=== PATIENT | female | born 1990 | race Caucasian/White ===

== ENCOUNTER → 2017-10-20 | Outpatient (REF) ==
[~2017-10-20] MED LIST: BACDS PO; IBUP-56 PO; IBUP800T37 PO; LOR5/325 PO; MED150I IM; ONDA4TAB PO; PER PO; PREN-162 PO
[2017-10-20 09:21] LABS: LDL CHOLESTEROL 73 mg/dl
== END ==
DX: Z02.9 Encounter for administrative examinations, unspecified (principal)

== ENCOUNTER → 2017-11-14 | Outpatient (CLI) | payer OTHER | LOC: LAB 09:54 | PROVIDERS: ATTEND Obstetrics & Gynecology | DX: Z11.3 Encounter for screening for infections with a predominantly sexual mode of transmission (principal); Z11.8 Encounter for screening for other infectious and parasitic diseases | CPT/HCPCS: 87491; 87591 ==

== ENCOUNTER → 2018-01-26 | Outpatient (CLI) | payer OTHER ==
[~2018-01-26] MED LIST changes: +PREN-127 PO
[2018-01-26 15:50] LABS: PLATELET COUNT, AUTOMATED 208 K/uL (150-450)
== END ==
LOC: LAB 14:35
PROVIDERS: ATTEND Obstetrics & Gynecology
DX: Z34.91 Encounter for supervision of normal pregnancy, unspecified, first trimester (principal); R82.79 Other abnormal findings on microbiological examination of urine
CPT/HCPCS: 36415; 81001; 85025; 86592; 86762; 86850; 86900; 86901; 87088; 87340

== ENCOUNTER → 2018-03-30 | Outpatient (CLI) | payer OTHER ==
[~2018-03-30] MED LIST changes: +FLU60SYR36 IM
== END ==
LOC: LAB 15:09
PROVIDERS: ATTEND Student in an Organized Health Care Education/Training Program
DX: Z34.92 Encounter for supervision of normal pregnancy, unspecified, second trimester (principal)
CPT/HCPCS: 36415; 81511

== ENCOUNTER → 2018-04-30 | Outpatient (CLI) | payer OTHER ==
--- NOTE | 2018-04-30 15:29 | RADIOLOGY IMAGING REPORT ---
[place] [facility] [place] NAME: Marlen Vargas : 1990 MR: [id number] V: [id number] EXAM DATE: ORDERING PHYSICIAN: YOVANI PERAZA TECHNOLOGIST: Location: [facility] Patient: Marlen Vargas : 1990 Visit/Account:[id number] Date of Sevice: 04/30/2018 [facility] OB ANATOMICAL SURVEY HISTORY: Anatomic survey COMPARISON: None. TECHNIQUE: Transabdominal imaging was performed for assessment of the fetus and maternal pelvic s tructures. Transvaginal imaging was not performed. FINDINGS: Intrauterine gestations: One. presentation: Variable. heart rate: 150 bpm. Amniotic fluid volume: Normal; NAB 23.7 cm; MVP 6.64 cm. Placenta: Anterior. Uterus: Gravid, otherwise grossly unremarkable where visualized. Maternal adnexa/ovaries: Grossly unremarkable, ovaries not visualized. Cervix: Grossly long and closed. Gestational Parameters: BPD: 4.42 cm, 24th percentile HC: 16.97 cm, 24th percentile AC: 15.4 cm, 57th percentile FL: 3.17 cm, 37th percentile Average ultrasound age (AUA): 19 weeks/ six days Estimated age based on LMP: 20 weeks/ zero days Estimated weight (EFW): 329 grams +/- 48 grams, 48th percentile Anatomic Survey: Intracranial structures, 4-chamber heart, stomach, kidneys, urinary bladder, spine, 3-vessel cord and cord insertion are unremarkable. Two upper and two lower extremities visualized. Transverse images of the sacrum could not be obtained due to position. The patient is scheduled for follow-up im aging Next IMPRESSION: Single viable fetus in viable presentation with an estimated gestational age by measurements of 19 we eks and six days. The estimated weight is 329 g, 48th percentile Transverse images of the sacrum could not be obtained due to position. The patient is schedule d to return next for follow-up imaging Report Dictated By: Wendi Sam MD at 04/30/2018 3:18 PM Report E-Signed By: Wendi Sam MD at 04/30/2018 3:25 PM WSN:LAURENT
== END ==
LOC: RAD 10:49
PROVIDERS: ATTEND Student in an Organized Health Care Education/Training Program
DX: Z34.92 Encounter for supervision of normal pregnancy, unspecified, second trimester (principal); Z3A.19 19 weeks gestation of pregnancy

== ENCOUNTER → 2018-05-07 | Outpatient (CLI) | payer OTHER | LOC: US 02:20 | PROVIDERS: ATTEND Student in an Organized Health Care Education/Training Program | DX: Z02.9 Encounter for administrative examinations, unspecified (principal) ==

== ENCOUNTER → 2018-06-24 | Outpatient (CLI) | payer OTHER ==
[~2018-06-24] MED LIST changes: +DIPH0.5D12 IM
[2018-06-24 16:27] LABS: PLATELET COUNT, AUTOMATED 183 K/uL (150-450)
== END ==
LOC: LAB 15:03
PROVIDERS: ATTEND Student in an Organized Health Care Education/Training Program
DX: Z34.92 Encounter for supervision of normal pregnancy, unspecified, second trimester (principal)
CPT/HCPCS: 36415; 82950; 85025

== ENCOUNTER → 2018-08-19 | Outpatient (CLI) | payer OTHER | LOC: LAB 08:09 | PROVIDERS: ATTEND Student in an Organized Health Care Education/Training Program | DX: Z34.93 Encounter for supervision of normal pregnancy, unspecified, third trimester (principal) | CPT/HCPCS: 87081 ==

== ENCOUNTER 2018-09-09 20:43 | Outpatient (CLI) | payer OTHER ==
[~2018-09-09 20:43] MED LIST changes: -DIPH0.5D12 IM; +DIPH0.5S2 IM
[2018-09-09] MEDS ORDERED: OSELTAMIVIR PHOS 75 MG CAP PO SCH (22:30)
[2018-09-10] MEDS ORDERED: OSE75 PO (08:50)
[2018-09-10 23:33] VITALS: BMI 27.1
[2018-10-06] MEDS ORDERED: BREA1EAC2 ASDIRECTED (09:03)
[2018-10-28] MEDS ORDERED: LEVO1IUD3 IY (09:11)
== END 2018-09-09 22:36 | disposition home or self-care (01) ==
LOC: OB 20:43 → L&D 20:43 → UNDOADMOB 20:43 → L&D 22:36 → UNDODISOB 22:36 → EDSTATUS 09-14 07:15
PROVIDERS: ATTEND Student in an Organized Health Care Education/Training Program
DX: J09.X2 Influenza due to identified novel influenza A virus with other respiratory manifestations (principal)
CPT/HCPCS: 87502; 87653; 99213; G0378; G0379

== ENCOUNTER 2018-09-10 23:24 | Inpatient (IN) | payer OTHER ==
[~2018-09-10] VITALS: Ht 177.8 cm; Wt 90.7 kg
[~2018-09-10 23:24] MED LIST changes: +DIPH0.5D12 IM; -DIPH0.5S2 IM; +OSE75 PO
[2018-09-10] MEDS ORDERED: OXYTOCIN 30 UNIT/D5LR 500 ML 500 ML ONE (23:32)
[2018-09-10 23:33] VITALS: BP 136/77; Ht 177.8 cm; Wt 90.7 kg
[2018-09-10] MEDS ORDERED: ceFAZolin(*) 2GM/D5W 50ML 50 ML IVPB PRN (23:40)
[2018-09-10] MEDS ORDERED: LR(*) 1000 ML BAG 1,000 ML IV SCH (23:40)
[2018-09-10] MEDS ORDERED: METOCLOPRAMIDE 10 MG/2 ML SDV IVP PRN (23:40)
[2018-09-10] MEDS ORDERED: fentaNYL CITR 100 MCG/2 ML AMP IVP PRN (23:40)
[2018-09-10] MEDS ORDERED: LIDOCAINE 1% LOCAL 300 MG/30ML INJ PRN (23:40)
[2018-09-10] MEDS ORDERED: FAMOTIDINE(*) 20MG/50ML PREMIX 50 ML IVPB PRN (23:40)
[2018-09-10] MEDS ORDERED: OXYTOCIN 30 UNIT/D5LR 500 ML 500 ML IV PRN (23:40)
[2018-09-10] MEDS ORDERED: LIDOCAINE/PF 2% 200MG/10ML AMP 200 MG/10 ML AMPUL EPI PRN (23:45)
[2018-09-10] MEDS ORDERED: BUPIVACAINE 0.25% MPF INJ EPI PRN (23:45)
[2018-09-10] MEDS ORDERED: FENTANYL/ROPIVACAINE 100 ML BAG EPI PRN (23:45)
[2018-09-10] MEDS ORDERED: BUPIVACAINE 0.5% INJ 30ML VIAL EPI PRN (23:45)
[2018-09-10] MEDS ORDERED: fentaNYL CITR 100 MCG/2 ML AMP IT PRN (23:45)
[2018-09-10] MEDS ORDERED: LIDO/EPI 2% MPF 1:200,000 20ML EPI PRN (23:45)
[2018-09-11] MEDS ORDERED: fentaNYL CITR 100 MCG/2 ML AMP ONE (00:11)
[2018-09-11] MEDS ORDERED: FENTANYL/ROPIVACAINE 100ML BAG 100 ML ONE (00:12)
[2018-09-11] MEDS ORDERED: ONDANSETRON 4 MG/2 ML VIAL ONE (00:12)
[2018-09-11] MEDS ORDERED: BUPIVACAINE 0.25% MPF INJ ONE (00:12)
[2018-09-11] MEDS ORDERED: ePHEDrine 25 MG/5 ML DISP.SYR IVP ONE (00:13)
--- NOTE | 2018-09-11 00:22 | History & Physical ---
History of Present Illness EDC per LMP: Sep 17, 2018 Estimated Gestational Age: 39.1 Chief Complaint Labor History of Present Illness 27-year-old at 39w1d presents for labor. She was originally scheduled for induction today, but tested positive for Influenza A yesterday. She is 3 doses into Tamiflu. She is afebrile now; last Tylenol at 1300. She reports UCx since around 2200hrs. She denies LOF or VB. No preeclampsia symptoms. PNC by Dr. Ziegler. c/b breech with successful version at 36 weeks and history of fast labor. History Patient's Blood Type: O Positive Rubella Status: Immune Group B Strep Screen: Negative Obstetrical History: Hx 2 SVDs Past Medical History: See PNR Allergies: Coded Allergies: No Known Drug Allergies (Verified , 12/11/10) Social History: Denies use of alcohol, tobacco, or recreational drugs. Family History: FH: HTN (hypertension) MOTHER, Age:58 FH: Parkinson's disease FATHER, Age:63 FH: breast cancer aunt FH: colon cancer grandma FH: prostate cancer FATHER, Age:63 FH: stroke FATHER, Age:63 Med Rec Home Meds Active Scripts Oseltamivir Phosphate (TAMIFLU) 75 Mg Cap, 75 MG PO BID for 5 Days, #10 CAP 0 Refills Prov:YOVANI ZIEGLER DO 09/10/18 Reported Medications Vits W-Ca,Fe,Fa(<1MG) ( VITAMINS) 1 Each Tablet, 1 EACH PO DAILY, TAB 01/26/18 Review of Systems Constitutional: Fever, Chills Neurological: No Syncope Eyes: No Vision Change ENT: Sinus Congestion Cardiovascular: No Chest Pain, No Palpitations Respiratory: Cough; No Shortness of Breath Gastrointestinal: No Nausea, No Vomiting, No Diarrhea Genitourinary: No Dysuria Musculoskeletal: No Pain Psychiatric: No Depression, No Anxiety Exam General Exam Vital Signs VS reviewed General Apperance: Alert/Awake/No Acute Distress Neuro: No Gross deficits Eyes: Normal Extraocular Movement & Vison Cardiovascular: Regular Rate and Rhythm Respiratory: No Respiratory Distress Abdomen: Gravid - Non-Tender : Normal Musculoskeletal: No Weakness/Pain Extremities: No Cyanosis,Clubbing or Edema Integumentary: Skin Intact without Lesions or Rash Psychological: Alert & Oriented X3, Appropriate Mood & Affect Cervical Dialation: 6 Cervical Effacement (%): 80 Cervical Consistency: Soft Cervical Position: Mid Station: -2 Presentation: Vertex Uterine Contractions(Q min): 3 Uterine Contraction Strength: Moderate UC Resting Tone: Soft Fetus Feeling Movement?: Yes FHT Category: I Assessment and Plan Problems: (1) Active labor at term Assessment & Plan: 27-year-old at 39w1d presents for labor. Ultrasound confirms cephalic. She will get epidural and then anticipate . (2) Influenza A Assessment & Plan: Continue Tamiflu BID. (3) 39 weeks gestation of SANTOS MYLES MD Sep 11, 2018 00:22
[2018-09-11 00:24] LABS: PLATELET COUNT, AUTOMATED 163 K/uL (150-450)
--- NOTE | 2018-09-11 00:53 | Labor Progress Note ---
Labor Subjective Progress Notes Subjective Pt comfortable s/p Epidural. Feeling Movement?: Yes Vaginal Discharge/Fluid: Clear Fluid (with amniotomy) Labor Pain: Comfortable Neurological: No Headache, No Other Eyes: No Visual Disturbances Labor Objective Vaginal Discharge/Fluid?: Clear Fluid (with AROM) Cervical Dialation: 8 Cervical Effacement (%): 100 Cervical Consistency: Soft Cervical Position: Anterior Station: -1 Presentation: Vertex Uterine Contractions(Q min): 2 Uterine Contraction Strength: Moderate UC Resting Tone: Soft Fetus Heart Tones: 125 Heart Tone Variabilty: Moderate FHT Accelerations: Present FHT Decelerations: None FHT Category: I Other Result Diagram: 09/11/18 0004 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 Underwent amniotomy with clear amniotic fluid. Expect soon. (2) Influenza A (3) 39 weeks gestation of KARMENJWAnali LU Sep 11, 2018 00:53
--- NOTE | 2018-09-11 01:05 | Anesthesia OB Pre-Anes Eval ---
History of Present Illness Anesthesia Start Date: Sep 11, 2018 Anesthesia Start Time: 00:15 OB Anesthesia Diagnosis: spontaneous labor Current Complication: other (Flu +) EDC: Apr 07, 2016 : 3 Para: 2 Pain Ratin Result Diagram: 09/11/18 0004 Height (Inches): 70 Weight (Pounds): 187 Past Medical History Medical History: other (+flu) Surgical History: noncontributory Previous Anesthesia: epidural Attended Childbirth Classes?: No Hx Anesthesia Reactions: No Hx Family Anesthesia Reaction: No Home Meds Active Scripts Oseltamivir Phosphate (TAMIFLU) 75 Mg Cap, 75 MG PO BID for 5 Days, #10 CAP 0 Refills Prov:YOVANI PERAZA DO 09/10/18 Reported Medications Vits W-Ca,Fe,Fa(<1MG) ( VITAMINS) 1 Each Tablet, 1 EACH PO DAILY, TAB 01/26/18 Allergies: Coded Allergies: No Known Drug Allergies (Verified , 12/11/10) Anesthesia OB ROS Neurological: No migraines/headaches, No seizures, No neuropathy, No other ENT: Denies Tooth caps, Denies Loose teeth, Denies Chipped teeth, Denies Dentures, Denies Bridges, Denies Retainers, Denies Veneers, Denies Implants, Denies Tongue ring, Denies Other Pulmonary: No asthma, No smoker (pks/day/yrs), No other Airway Class: ll Cardiovascular ROS: No edema, No arrhythmia, No other GI ROS: clear liquids Last Solids Date: Sep 10, 2018 Last Solids Time: 17:30 ROS: No Herpes, No STD(s), No Liver Disease, No Renal Disease, No Other Endocrine ROS: No diabetes, No gestational diabetes, No thyroid disorder, No other Musculoskeletal ROS: No low back pain, No low back injury, No scoliosis, No other ASA Classification: 2 Assessment and Plan Anesthesia Plan: JUANY JOY CRNA Sep 11, 2018 01:05
--- NOTE | 2018-09-11 01:08 | Procedure Note ---
Anesthetic Placement Note Anesthesia Plan: CSE Permit for Anesthesia Signed: Yes Anesthesia Technique: Patient Sitting Anesthesia Prep: Chlorhexidine Interspace: L 3-4 Local Anesthetic: 1% Lidocaine Amount Local - cc's: 3 Anesthesia Needle: 17g Touhnash/Jeff Anesthesia Attempts: 1 Loss of Resistance: Normal Saline Depth of YA (cm): 4.5 Epidural Needle Placement: No CSF, No Blood, No Parasthesia Intrathecal Needle: 27 Gauge Pencan Cerebral Spinal Fluid: Yes, Clear Catheter Insertion (cm): 4.5 (9cm @skin) Catheter Type: Lr - Spring Wound Epidural Dressing: Tegaderm, Tape Anesthesia Tray: Lot Number ([id number]), Expiration Date (02/23), Reference Number ([id number]) Anesthesia Medications: Intrathecal Dose: mcg Fentanyl (10), mg Marcaine MPF (2.5), Time (0028) Epidural Test Dose: 1.5 Lido/Epi (1:200,000), Dose - mL (3), Time (0031), Negative Epidural Infusion: 0.2% Ropivicaine, With Fentanyl 2mcg/ml, Start Time: (0042) Epidural Pump Setting: Bolus Dose - mL (8), Lockout - Minutes (20), Maintenance Rate - mL/hr (6), Maximum per Hour - mL (30) Complications: None JUANY MUNIZ CRNA Sep 11, 2018 01:08
--- NOTE | 2018-09-11 01:38 | Anesthesia Progress Note ---
Assessment and Plan Anesthesia Plan: CSE Anesthesia Stop Day: Sep 11, 2018 Anesthesia Stop Time: 01:45 JUANY MUNIZ CRNA Sep 11, 2018 01:38
[2018-09-11] MEDS ORDERED: INFLUENZA VIRUS VAC 0.5ML SYR IM ONLY ONE (02:00)
[2018-09-11] MEDS ORDERED: ACETAMINOPHEN 325 MG TAB PO PRN (02:00)
[2018-09-11] MEDS ORDERED: HYDROCORTISONE 2.5% CR 30GM TB PR PRN (02:00)
[2018-09-11] MEDS ORDERED: APAP/HYDROCODONE 325/5 TAB PO PRN (02:00)
[2018-09-11] MEDS ORDERED: MAGNESIUM HYDROXIDE* 30ML UDCP PO PRN (02:00)
[2018-09-11] MEDS ORDERED: GLYCERIN/WITCH HAZEL LEAF 1 PK TOP PRN (02:00)
[2018-09-11] MEDS ORDERED: MEASLES,MUMP,RUBELLA VAC 0.5ML SC ONE (02:00)
[2018-09-11] MEDS ORDERED: LANOLIN OINT 7 GM TUBE TP PRN (02:00)
[2018-09-11] MEDS ORDERED: BENZOCAINE 20% 60 ML BTL TP PRN (02:00)
[2018-09-11] MEDS ORDERED: DIPHTH/TETANUS/ACEL. PERTUSSIS IM ONE (02:00)
--- NOTE | 2018-09-11 02:07 | OB Delivery Note ---
Delivery Note Vaginal Delivery Type: Spont. Vaginal Delivery Delivery Date: Sep 11, 2018 Delivery Time: 01:34 Estimated Gestational Age(wks): 39.2 Length of Labor Stage I (hrs): 4 Length of Labor Stage II (hrs): 0.5 Labor Stage III (minutes): 10 Delivery Anesthesia: Epidural Infant Sex: Female Weight (gms): 3130 Apgars: 1 Minute (9), 5 Minute (9) Estimated Blood Loss: 500 YOVANI PERAZA DO Sep 11, 2018 02:07
--- NOTE | 2018-09-11 03:11 | DELIVERY NOTE ---
DELIVERY DATE: September 11, 2018 SURGEON: Jama Ziegler DO ANESTHESIA: Epidural. PREOPERATIVE DIAGNOSES 1. A 27-year-old 3, para 2, at 39-1/7 weeks. 2. Labor. 3. Influenza A positive. POSTOPERATIVE DIAGNOSES 1. A 27-year-old 3, para 2, at 39-1/7 weeks. 2. Labor. 3. Influenza A positive. PROCEDURE Spontaneous vaginal delivery. FINDINGS A live-born female infant at 0134 of 09/11/2018 with Apgars of 9 and 9, weighing 3130 g, 6 pounds 14 ounces, three-vessel cord, over an intact perineum with an intact placenta. ESTIMATED BLOOD LOSS 500 mL. PATHOLOGY None. COMPLICATIONS None known. CONDITION Stable x2. Mother and to remain in LDRP. COUNTS Correct for all needles, laps, sponges and instruments. LABOR SUMMARY Patient is a 27-year-old 3, para 2, who presented to Labor and Delivery with a chief complaint of painful contractions. She was noted to be 6 cm on admission. Patient has a history of rapid labor. With that history, she requested epidural as soon as possible, received one accordingly. She did undergo amniotomy with clear amniotic fluid after epidural and was noted to be 8 cm, and quickly progressed to complete and felt the urge to push. With the urge to push, the delivery team was called and assembled. DELIVERY SUMMARY Patient was placed in dorsal lithotomy position. She was prepped and draped in the usual sterile manner. Upon maternal pushing, the infant's head was delivered in a controlled manner, followed by the anterior shoulder with gentle downward motion, the posterior shoulder with gentle upward motion, with the remainder of the 's body delivering spontaneously. Mouth and nose were bulb-suctioned. Infant was placed on maternal abdomen, where she was tended to by awaiting nursing staff. After 2-1/2 minutes, the cord was clamped x2 and cut by the 's father. With the cord cut, the baby continued to be monitored and was inspected and watched by the Labor and Delivery staff. Cord blood gases were obtained. The placenta delivered spontaneously with gentle cord traction. Oxytocin was infused to help with uterine tone. The uterine was massaged and deemed firm. Next, following inspection of the perineum, vagina, cervix, and labia, it was noted that there were no lacerations present. The patient was cleaned, the labor bed was reassembled, and the mother and were allowed to continue to moran. CHEIKH
[2018-09-11] MEDS ORDERED: IBUPROFEN 800 MG TAB PO SCH ×2 (05:00→09:00)
[2018-09-11] MEDS ORDERED: LR(*) 1000 ML BAG 1,000 ML ONE ×2 (05:20→05:27)
[2018-09-11 07:23] VITALS: BP 124/88
[2018-09-11] MEDS: DOCUSATE CALCIUM 240 MG CAP PO SCH ×2 (09:00→20:25)
--- NOTE | 2018-09-11 09:30 | Anesthesia Post Eval Note ---
Anesthesia Post Eval Note Vital Signs 09/10/18 09/11/18 23:33 07:23 Temp 97.5 Pulse 100 Resp 18 B/P (MAP) 124/88 (100) Pulse Ox 97 O2 Delivery Room Air Pt able to participate in Eval: Yes Cardiovascular Status: Satisfactory Respiratory Status: Satisfactory Pain Managment: Satisfactory PO Nausea/Vomiting: Satisfactory Temperature Management: Satisfactory Mental Status: Satisfactory, Alert, Oriented X3 Post-Op Hydration Status: Satisfactory, Tolerating PO Well, Voiding w/o Difficulty Anesthesia Type: JUANY JOY CRNA Sep 11, 2018 09:30
[2018-09-11] MEDS: IBUPROFEN 800 MG TAB PO SCH ×2 (13:57→20:25)
[2018-09-11 17:00] VITALS: BP 122/75
[2018-09-11 19:22] VITALS: BP 122/91
[2018-09-11 23:45] VITALS: BP 122/77
[2018-09-12] MEDS: IBUPROFEN 800 MG TAB PO SCH ×3 (05:00→17:11)
[2018-09-12 07:30] VITALS: BP 121/88
[2018-09-12] MEDS: DOCUSATE CALCIUM 240 MG CAP PO SCH (08:40)
--- NOTE | 2018-09-12 11:37 | OB/GYN Progress Note ---
OB Subjective Progress Notes Subjective Doing great PPD #1. Denies any complaints. Reports flu symptoms improving. Lochia appropriate. Tolerating regular diet. Ambulatory. GI: NEG Nausea, NEG Vomiting, NEG Flatus, NEG Bowel Movement : Voiding Well, Vaginal Bleeding, Scant Pain: Mild, Comfortable Neurological: No Headache, No Other Eyes: No Visual Disturbances OB Objective Physical Exam Vital Signs Date Time Temp Pulse Resp B/P (MAP) Pulse Ox O2 Delivery O2 Flow Rate FiO2 09/12/18 03:30 98.6 94 16 09/11/18 23:45 122/77 (92) 09/11/18 21:15 Room Air 09/11/18 19:22 94 Intake and Output 09/12/18 06:59 Intake Total 960 ml Output Total 300 ml Balance 660 ml Intake Oral 460 ml IV Total 500 ml Output Urine Total 300 ml # Voids 2 General Appearance: Alert/Awake/No Acute Distress Neurological: No Gross deficits Eyes: Normal Extraocular Movement & Vison Respiratory: No Respiratory Distress Extremities: No Cyanosis,Clubbing or Edema Integumentary: Skin Intact without Lesions or Rash Psychological: Alert & Oriented X3, Appropriate Mood & Affect Result Diagram: 09/12/18 0550 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 Will plan to discharge to room in status. (2) Influenza A (3) 39 weeks gestation of YOVANI PERAZA Sep 12, 2018 11:37
[2018-09-12] MEDS ORDERED: IBUP800T37 PO (11:38)
--- NOTE | 2018-09-12 11:43 | OB/GYN Discharge Summary ---
Discharge Summary Reason for Hosp/Final Diag: (1) Active labor at term Hospital Course & Plan: Pt presented in active labor. She progressed to complete and delivered a live born female infant. see delivery note for details of procedure. Pt remained in the hospital for 1 day post . Pt was discharged home. (2) Influenza A (3) 39 weeks gestation of Lates Vital Signs Vital Signs Date Time Temp Pulse Resp B/P (MAP) Pulse Ox O2 Delivery O2 Flow Rate FiO2 09/12/18 03:30 98.6 94 16 09/11/18 23:45 122/77 (92) 09/11/18 21:15 Room Air 09/11/18 19:22 94 Weight (Pounds): 200 Result Diagram: 09/12/18 0550 Condition: Improved Home Meds Active Scripts Oseltamivir Phosphate (TAMIFLU) 75 Mg Cap, 75 MG PO BID for 5 Days, #10 CAP 0 Refills Prov:YOVANI PERAZA DO 09/10/18 Reported Medications Vits W-Ca,Fe,Fa(<1MG) ( VITAMINS) 1 Each Tablet, 1 EACH PO DAILY, TAB 01/26/18 Follow up with: [facility] [phone], Dr. Peraza [phone] Follow up in: 6 wks PP or PO, 2 wks PO Discharge Diet: As Tolerates Discharge Activity: As Tolerates, Pelvic Rest YOVANI PERAZA DO Sep 12, 2018 11:43
[2018-09-12 11:45] VITALS: BP 115/78
== END 2018-09-12 17:20 | disposition home or self-care (01) | DRG 807 ==
LOC: OB 23:24 → OBSVTOIN 23:24 → OB 09-11 11:50
PROVIDERS: ADMIT Obstetrics & Gynecology; ATTEND Obstetrics & Gynecology
PROC: 10E0XZZ Delivery of Products of Conception, External Approach (ICD-10-PCS; principal; 2018-09-11)
PROC: 10907ZC Drainage of Amniotic Fluid, Therapeutic from Products of Conception, Via Natural or Artificial Opening (ICD-10-PCS; 2018-09-11)
DX: O99.52 Diseases of the respiratory system complicating childbirth (principal); Z37.0 Single live birth; J10.1 Influenza due to other identified influenza virus with other respiratory manifestations; Z3A.39 39 weeks gestation of pregnancy
CPT/HCPCS: 36415; 85025; 85027; 86703; 86850; 86900; 86901; J2405; J3010; S0020